=== PATIENT | male | born 1980 | race Two or more races ===

== ENCOUNTER 2017-06-02 22:17 | Emergency (ER) | payer SELFPAY ==
[2017-06-03] MEDS ORDERED: LIDOCAINE 1%/EPINEPHRINE INJ 20 ML VIAL INJ ONE (00:33)
[2017-06-03] MEDS ORDERED: DIPH/PERTUSS(ACELL)/TETANUS VAC/PF 0.5 ML SYR (>=10YO) IM ONE (00:42)
--- NOTE | 2017-06-03 00:42 | ER Document Report ---
ED Wound - General Chief Complaint: Laceration Stated Complaint: HAND LACERATION Time Seen by Provider: 06/03/17 00:27 Notes: Patient is a 36-year-old male who comes emergency department for chief complaint of laceration to his right hand, he states that he stopped at a yard sale, picked up a sword, opened the sword and accidentally caused a laceration just beneath his thumb. He denies any other injuries. His tetanus is not up-to -date. TRAVEL OUTSIDE OF THE [place] IN LAST 30 DAYS: No - Related Data Allergies/Adverse Reactions: No Known Allergies Allergy (Unverified 06/02/17 22:29) Past Medical History - General Information source: Patient - Social History Smoking Status: Never Smoker Drug Abuse: None Lives with: Family Family History: Reviewed & Not Pertinent - Medical History Medical History: Negative Surgical Hx: Negative - Immunizations Immunizations up to date: Yes Hx Diphtheria, Pertussis, Tetanus Vaccination: Yes Review of Systems - Review of Systems Constitutional: No symptoms reported EENT: No symptoms reported Cardiovascular: No symptoms reported Respiratory: No symptoms reported Gastrointestinal: No symptoms reported Genitourinary: No symptoms reported Male Genitourinary: No symptoms reported Musculoskeletal: See HPI Skin: See HPI Hematologic/Lymphatic: No symptoms reported Neurological/Psychological: No symptoms reported Physical Exam - Vital signs Vitals: Temp Pulse Resp BP Pulse Ox 98.8 F 68 18 163/99 H 97 06/02/17 23:10 06/02/17 23:10 06/02/17 23:10 06/02/17 23:10 06/02/17 23:10 Interpretation: Normal - General General appearance: Appears well In distress: None - HEENT Head: Normocephalic, Atraumatic Eyes: Normal Pupils: PERRL Nasal: Normal Mouth/Lips: Normal Mucous membranes: Normal Pharynx: Normal Neck: Normal - Respiratory Respiratory status: No respiratory distress Chest status: Nontender Breath sounds: Normal. No: Decreased air movement, Wheezing - Cardiovascular Rhythm: Regular. No: Tachycardia Heart sounds: Normal auscultation, S1 appreciated, S2 appreciated Murmur: No - Abdominal Inspection: Normal Distension: No distension Bowel sounds: Normal Tenderness: Nontender. No: Tender, Guarding - Back Back: Normal, Nontender - Extremities General upper extremity: Other - There is a 2 cm laceration at the base of the thumb in the webbing between the first and second digits of the right hand. Slightly irregular, partial-thickness, no injury to tendon, nerve, or large vessel. Normal capillary refill and sensation of fingers, normal range of motion of all fingers, normal sensation. Normal hand exam otherwise. 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 Tetanus updated. Discussed wound care, follow-up, return precautions. Patient states understanding and agreement - Vital Signs Vital signs: Temp Pulse Resp BP Pulse Ox 98.7 F 68 12 144/86 H 98 06/03/17 01:46 06/03/17 01:46 06/03/17 01:46 06/03/17 01:46 06/03/17 01:46 Procedures - Laceration/Wound Repair Right hand laceration Wound length (cm): 2 Wound's Depth, Shape: Irregular Laceration pre-procedure: Sterile PPE donned, Sterile drapes applied, Shur- Clens applied - Surgical cleanser Anesthetic type: 1% Lidocaine w/epi Volume Anesthetic (mLs): 3 Wound explored: Clean, No foreign body removed Irrigated w/ Saline (mLs): 50 Wound Repaired With: Sutures Suture Size/Type: 4:0, Nylon Number of Sutures: 5 Post-procedure wound care: Sterile dressing applied Post-procedure NV exam normal: Yes Complications: No Discharge - Discharge Clinical Impression: Laceration of right hand Qualifiers: Encounter type: initial encounter Foreign body presence: without foreign body Qualified Code(s): S61.411A - Laceration without foreign body of right hand, initial encounter Condition: Stable Disposition: HOME, SELF-CARE Additional Instructions: The sutures need to come out in 7-10 days. Keep clean, clean with soap and water, dab dry, avoid soaking. You can apply thin film of topical antibiotic to the area. Return immediately for any signs of infection including redness, swelling, discolored drainage, fever, or any other concerning symptoms. Forms: Return to Work
[2017-06-03 01:51] VITALS: BP 144/86
[2017-06-03] MEDS ORDERED: HYDROCODONE/ACETAMINOPHEN 5-325 MG (6 TAB/ER DISP) PO PRN (02:11)
== END 2017-06-03 02:25 | disposition home or self-care (01) ==
LOC: ER 22:17
DX: S61.411A Laceration without foreign body of right hand, initial encounter (principal); W26.1XXA Contact with sword or dagger, initial encounter; Y93.89 Activity, other specified; Z23 Encounter for immunization
CPT/HCPCS: 99282; 90471; 90715; 12001; J3490